=== PATIENT | female | born 1935 | race Caucasian/White ===

== ENCOUNTER → 2023-06-05 08:29 | Outpatient (REF) | payer MEDICARE, OTHER, SELFPAY | LOC: WOUND 08:29 | PROVIDERS: ATTENDING PHYSICIAN Surgery | DX: I87.2 Venous insufficiency (chronic) (peripheral) (principal); L97.111 Non-pressure chronic ulcer of right thigh limited to breakdown of skin; L97.811 Non-pressure chronic ulcer of other part of right lower leg limited to breakdown of skin; Z79.01 Long term (current) use of anticoagulants; I48.0 Paroxysmal atrial fibrillation; I49.5 Sick sinus syndrome | CPT/HCPCS: 99204 ==

== ENCOUNTER → 2023-06-12 11:32 | Outpatient (REF) | payer MEDICARE, OTHER, SELFPAY | LOC: WOUND 11:32 | PROVIDERS: ATTENDING PHYSICIAN Surgery | DX: I87.2 Venous insufficiency (chronic) (peripheral) (principal); L97.111 Non-pressure chronic ulcer of right thigh limited to breakdown of skin; L97.811 Non-pressure chronic ulcer of other part of right lower leg limited to breakdown of skin; Z79.01 Long term (current) use of anticoagulants; I48.0 Paroxysmal atrial fibrillation; I49.5 Sick sinus syndrome | CPT/HCPCS: 97597 ==